=== PATIENT | male | born 1935 | race Caucasian/White ===

== ENCOUNTER 2016-12-06 07:53 | Day surgery (SDC) | payer MEDICARE ==
[~2016-12-06] VITALS: Ht 177.8 cm; Wt 80.1 kg
[~2016-12-06 07:53] MED LIST: APPLTAB2
[2016-12-06] MEDS ORDERED: ASPI81CH CHEW (08:33)
[2016-12-06] MEDS ORDERED: [UNRECOGNIZED DRUG - CODE] (08:33)
[2016-12-06] MEDS ORDERED: GEMF600T PO (08:33)
[2016-12-06] MEDS ORDERED: TEMA15CA PO (08:33)
[2016-12-06] MEDS ORDERED: REDCAP2 (08:33)
[2016-12-06] MEDS ORDERED: BETA0.1C TOPICAL (08:33)
[2016-12-06] MEDS ORDERED: VITA2000 PO (08:33)
[2016-12-06] MEDS ORDERED: ZINCCAP (08:33)
[2016-12-06] MEDS ORDERED: TURMCAP (08:33)
[2016-12-06] MEDS ORDERED: MAGN500T4 PO (08:33)
[2016-12-06] MEDS ORDERED: HYDR25TA5 PO (08:33)
[2016-12-06] MEDS ORDERED: LISI-515 PO (08:33)
[2016-12-06 08:57] VITALS: BP 143/89; PULSE 87; RESP 18; TEMP 98.1; O2SAT 93
[2016-12-06] MEDS ORDERED: IOHEXOL 350 MG/ML 100 ML BTL (for Cath Lab) OTHER ONE (09:30)
[2016-12-06] MEDS ORDERED: IOHEXOL 350 MG/ML 50 ML BTL (for Cath Lab) OTHER ONE (09:30)
[2016-12-06] MEDS ORDERED: MIDAZOLAM HCL 2 MG/2 ML VIAL ONE ×2 (09:45→10:10)
[2016-12-06] MEDS ORDERED: HEPARIN SODIUM - IV 10,000 UNITS/10 ML VIAL ONE (09:45)
[2016-12-06] MEDS ORDERED: HEPARIN-NS/PF INJ 500 ML ONE (09:48)
[2016-12-06] MEDS ORDERED: PLAV75TA29 PO (11:02)
[2016-12-06] MEDS ORDERED: CLOPIDOGREL 300 MG TAB ONE (11:05)
--- NOTE | 2016-12-06 11:06 | CATHPROC ---
Patient Name: NIKKY ZELAYA Study #: [id number] Initial MD: Willy Bonilla Date of : 1935 Study Date: 12/06/2016 Cardiac Catheterization Report 12/06/2016 11:06:10 AM Financial #: [id number] 1 of Patient Name: NIKKY ZELAYA Study #: [id number] Initial MD: Willy Bonilla Date of : 1935 Study Date: 12/06/2016 Entire Case Report Patient Information Patient Name NIKKY ZELAYA Date of 1935 Age 81 years Financial # [id number] Gender M AlternateID Lab Number 5 Accession # Room Number Height (in) 68.0 Height (cm) 172.7 BSA 1.94 Weight (lbs) 176.2 Weight (kg) 80.1 Patient Address/Phone Number Home Address [facility] Home Phone Number [phone] [facility] [place] [id number] Study Information Study Number Admission Scheduled Start Study Start 926-17 12/06/2016 12/06/2016 Dec 06 2016 9:36AM Referring Institution Admit Source Facility Department 1 Other [facility] Peeler Operator Physician and Clinical Staff Initial Willy Valenzuela Thermoscrew Operator Jim Kumar,LLOYD Thermoscrew Operator Svetlana Cantu RCIS TECH2 Recorder Carly BraggRT(R) (BS) Scrub Jayden TalaveraRT(R) Procedures Performed Procedure Location (Site) Vessel Name Abdominal Angiogram Abd Aorta (A3) Aorta Abdominal Angiogram Iliac R. Com. (R4) Illiac Art. Angiogram (manual) Iliac L. Com. (L4) [place]iac Art. SKIVER MACHINE OPERATOR Fem L. Com (L7) Femoral Art SKIVER MACHINE OPERATOR Popliteal R (R10) Popliteal Wire insertion Fem Art (left) Femoral Art 12/06/2016 11:06:10 AM Financial #: [id number] Patient Name: NIKKY ZELAYA Study #: [id number] Initial MD: Willy Bonilla Date of : 1935 Study Date: 12/06/2016 Equipment Time Complaint Manager Description Size Mfg Part Number Used/Scraped DBP- CARDIOVASCULAR CATHETER, STEALTH SOLID 10:30 [id number] Used SYSTEMS INC. 2.00MM 30 GRIT *[id number] CARDIOVASCULAR VPR-[id number] 10:29 WIRE, FIRM (VIPER) 335 Used SYSTEMS INC. *[id number] 09:41 CORDIS/ NORMA RIM SUPER TORQUE CATHETER FR 5 [id number] Used WIRE, STORQ STANDARD MOD J 10:43 CORDIS/ NORMA 300CM [id number] Used 300CM [id number] *[id number] BALLOON, ADMIRAL EXTREME 5 [id number] 10:39 [employer] 130CM Used X 40 130CM *[id number] BALLOON, ADMIRAL IN.PACT 6 X [id number] 10:40 [employer] 130CM Used 60 130CM *[id number] CATHETER, FR5 TRAILBLAZER [id number] 10:22 [employer] 135CM Used .035 *[id number] 09:41 MALLINCKRODT SYRINGE, ANGIOMAT 150ML 150ML [id number] Used [id number] 09:41 [employer] INDUSTRIES PACK, CCL CUSTOM * Used *[id number] 09:41 [employer] PACER PEN, SKIN DUAL W/ RULER * [id number] Used [id number] 10:45 Alegría MEDICAL SHEATH, FR6.5 PRELUDE 11CM FR 6.5 038ACT Used *[id number] 09:41 Alegría MEDICAL WIRE, EXCHANGE 260CM 3MMJ 260CM Used *[id number] 09:41 NAMIC MANIFOLD, 4 PORT * Used *[id number] 09:41 NAMIC TUBING, HIGH PRESSURE 48" 48" Used *[id number] 09:41 NYCOMED OMNIPAQUE, 300 MG, 100ML 100ML [id number] Used 09:41 NYCOMED OMNIPAQUE, 300 MG, 100ML 100ML [id number] Used [id number] 09:41 BARRIOS MEDICAL BLANKET,WARM AIR CCL * Used *[id number] 09:41 TERUMO MEDICAL SHEATH, FR5 TERUMO (10CM) FR 5 [id number] Used SHEATH, FR6 PINNACLE [id number] 10:24 TERUMO MEDICAL/NORMA FR 6 Used DESTINATION 45CM *[id number] WIRE, ANGLE GLIDE STIFF .035 09:41 TERUMO MEDICAL/NOMRA 260CM [id number] Used 260CM Equipment Model, Serial, Lot Number and Expiration Data Description Model Number Serial Number Lot Number Expiration Date BALLOON, ADMIRAL IN.PACT 6 X [id number] 08-13-2017 60 130CM CATHETER, FR5 TRAILBLAZER .035 [id number] 10-29-2019 CATHETER, STEALTH SOLID [id number] 08-27-2018 2.00MM 30 GRIT SHEATH, FR6.5 PRELUDE 11CM [id number] 08-27-2019 WIRE, FIRM (VIPER) 335 [id number] 07-27-2018 12/06/2016 11:06:10 AM Financial #: [id number] 3 of 11 Patient Name: NIKKY ZELAYA Study #: [id number] Initial MD: Willy Bonilla Date of : 1935 Study Date: 12/06/2016 Insurance Information Insurance Payor Private Health Insurance Third Libertarian Third Libertarian Number FHC - MCR HMO [id number] History: Allergies Allergy Reaction Lipitor prevastatin Sulfa Demerol Labs Hgb (g/dl) Hct (%) WBC (l/cumm) Platelets (thousands) 12.00-18.00 37.00-55.00 4.80-10.80 140.00-450.00 14.2 42.6 4.4 219 Glucose (mg/dl) BUN (mg/dl) Creatinine (mg/dl) BUN:Creatinine (1:x) 60.00-110.00 8.00-20.00 0.10-9.00 10.00-20.00 107 18 1.0 18 Na (meq/l) K (meq/l) 138.00-146.00 3.80-5.10 141 4.2 INR (PTT:PT) 0.50-2.00 1.1 CPK-MB (ng/ML) 0.00-7.00 Not Drawn Medication Medication Total Dose (Bolus/Oral) Medication Total Dosage/Unit 1% XYLOCAINE 20 mL FENTANYL 50 mcg HEPARIN 7000 units NTG (IC) 100 mcg VERSED 2 mg 12/06/2016 11:06:10 AM Financial #: [id number] 4 of 11 Patient Name: NIKKY ZELAYA Study #: [id number] Initial MD: Willy Bonilla Date of : 1935 Study Date: 017 Medications (Bolus/Oral) Medication Time Given Dosage/Unit Administered By Reason VERSED 12/06/2016 10:06:27 AM 2 mg Jim Kumar 2 mg VERSED given in lab by Jim Kumar RN in Left Antecubital via Peripheral IV. FENTANYL 12/06/2016 10:06:37 AM 50 mcg Jim Kumar 50 mcg FENTANYL given in lab by Jim Kumar RN in Left Antecubital via Peripheral IV. 1% XYLOCAINE 12/06/2016 10:08:52 AM 20 mL Willy Bonilla 20 mL 1% XYLOCAINE given in lab by Willy Bonilla in Left Groin via Subcutaneous. HEPARIN 12/06/2016 10:30:08 AM 5000 units Jim Kumar 5000 units HEPARIN given in lab by Jim Kumar RN in Left Antecubital via Peripheral IV. NTG (IC) 12/06/2016 10:36:34 AM 100 mcg Willy Bonilla 100 mcg NTG (IC) given in lab by Willy Bonilla in Left Groin via Intra-arterial. HEPARIN 12/06/2016 10:42:43 AM 2000 units Jim Kumar 2000 units HEPARIN given in lab by Jim Kumar RN in Left Antecubital via Peripheral IV. Medication (Drip) Medication Time Given Dosage/Unit Concentration/Unit Diluent (ml) Solutio n IV Solutions 12/06/2016 9:36:23 AM 0 mL (IV) 500 NaCl .9 IV Solutions given in lab by Jim Kumar RN in Left Antecubital via Peripheral IV. Pump/Drip Flow = 20 ml/hr using NaCl .9. 12/06/2016 11:06:10 AM Financial #: [id number] Patient Name: NIKKY ZELAYA Study #: [id number] Initial MD: Willy Bonilla Date of : 1935 Study Date: 12/06/2016 Initial Case Assessment Cardiovascular HR NIBP Chest Pain 75 148/94 0 Edema Present Skin color Skin None Normal Warm Dry Circulatory - Right Pulses Dorsalis Pedis Posterior Tibial Femoral 2 d 2 Scale (0,1,2,3,4,d) Circulatory - Left Pulses Dorsalis Pedis Posterior Tibial Femoral d d 2 Scale (0,1,2,3,4,d) Circulatory - Lower Extremities Color Lower Right Color Lower Left Normal Normal Neurological State Oriented to time-place- Alert Moves all extremities person Respiration - General Respiration Rate SpO2 (%) (B/min) 15 98 12/06/2016 11:06:10 AM Financial #: [id number] 6 of 11 Patient Name: NIKKY ZELAYA Study #: [id number] Initial MD: Willy Bonilla Date of : 1935 Study Date: 12/06/2016 Vitals Summary Pain Time HR NIBP SpO2 Resp Temp EtCO2 Apnea Wolfgang Rouse Comment Level 09:39:53 80 148/94 96.0 8 10 0 2 09:44:41 79 143/70 97.0 14 10 0 2 09:48:53 80 133/83 97.0 19 10 0 2 09:53:54 78 134/71 96.0 19 10 0 2 09:58:51 78 129/74 97.0 16 10 0 2 10:03:50 80 117/72 95.0 18 10 0 2 10:08:49 86 112/74 94.0 17 10 0 2 10:14:23 88 110/51 92.0 12 10 0 2 10:18:45 82 82/71 96.0 13 10 0 2 10:24:19 82 118/80 96.0 15 10 0 2 10:29:39 81 115/75 96.0 15 10 0 2 10:33:51 83 116/68 95.0 11 2 10:38:58 83 130/51 96.0 13 10 0 2 10:43:55 79 116/70 96.0 12 10 0 2 10:48:52 79 110/68 97.0 13 10 0 2 10:54:28 80 122/74 98.0 14 10 0 2 10:58:52 79 135/83 97.0 22 10 0 2 12/06/2016 11:06:10 AM Financial #: [id number] 7 11 Patient Name: NIKKY ZELAYA Study #: [id number] Initial MD: Willy Bonilla Date of : 1935 Study Date: 12/06/2016 Wolfgang Score Summary Time Activity Resp Circ LOC Color Total Score 9:39:53 2 2 2 2 2 10 9:44:41 2 2 2 2 2 10 9:48:53 2 2 2 2 2 10 9:53:54 2 2 2 2 2 10 9:58:51 2 2 2 2 2 10 10:03:50 2 2 2 2 2 10 10:08:49 2 2 2 2 2 10 10:14:23 2 2 2 2 2 10 10:18:45 2 2 2 2 2 10 10:24:19 2 2 2 2 2 10 10:29:39 2 2 2 2 2 10 10:38:58 2 2 2 2 2 10 10:43:55 2 2 2 2 2 10 10:48:52 2 2 2 2 2 10 10:54:28 2 2 2 2 2 10 10:58:52 2 2 2 2 2 10 Wolfgang Score Definition Table Activity - 0 Activity - 1 Activity - 2 No Movement to Command Weak Hand Grasp Lift Head, Good Hand Grasp Respiration - 0 Respiration - 1 Respiration - 2 Apneic or Obstructed Shallow Breath, Airway Adjunct Deep Breath, Cough Freely Circulation - 0 Circulation - 1 Circulation - 2 B/P > 50% Admission B/P B/P > 20-50% Admission B/P B/P Stable X3 Level of Consciousness - 0 Level of Consciousness - 1 Level of Consciousness - 2 Not Responding Arousable On Calling Awake and Aware Color - 0 Color- 1 Color - 2 Cyanotic Lips, Nailbed, Skin Pale, Dusky Rosamond Or Normal Chronological Log Time Study Chronological Log 9:33:55 Patient arrived via Bed. 9:33:59 Patient Name, D.O.B, / Armband Verified By R.N. 9:34:01 Consent signed by the physician and the patient and verified by the Peeler Operator staff. 9:34:05 Pre-op and post- op instructions given; patient acknowledges understanding of instructions . 9:34:07 Verbal Stimulation=2 Physical Stimulation=2 Airway=2 Respiration=2 TOTAL=8. (0=absent, 1=l imited, 2=present) 12/06/2016 11:06:10 AM Financial #: [id number] Patient Name: NIKKY ZELAYA Study #: [id number] Initial MD: Willy Bonilla Date of : 1935 Study Date: 12/06/2016 9:36:12 Presedation assessment performed by Peeler Operator RN. 9:36:16 Patient has been NPO for More than 6Hrs. 9:36:19 Skin Breakdown none per pt 9:36:20 Patient Warmer Placed on the Table. 9:36:22 Kandi Prominences Protected 9:36:22 A # 20 IV was noted in the Antecubital (left). Grade = 0 IV Solutions given in lab by Jim Kumar RN in Left Antecubital via Peripheral IV. Pump/Drip Flow = 20 ml/hr using 9:36:23 NaCl .9. 9:36:24 History and physical on the chart or being dictated. Assessment: Initial Case, HR=75 BPM, FQSA=010/94 mmhg, Chest Pain=0, Edema=None, Color=Normal, Skin = Warm, Dry Right Pulses: Sheldon Ped=2, Post Tib=d, Femoral=2 Left Pulses: Sheldon Ped=d, Post Tib=d, Femoral=2 9:36:25 Lower Right Extremities: Color=Normal Lower Left Extremities: Color=Normal Neurological: State=Alert, Ox3, SAHU Respiration: Resp=15 B/min, SpO2=98 % Vitals capture started with the following parameters, Patient=Adult, Interval=5 min, Initial Pr ajlqdc=848 mmHg, 9:38:12 Deflation Rate=5 mmHg 9:39:53 HR=80 bpm, LPDE=704/94 mmhg, SpO2=96.0 %, Resp=8 B/min, Pain=0, Wolfgang=10, Rouse=2 9:44:41 HR=79 bpm, BDWM=199/70 mmhg, SpO2=97.0 %, Resp=14 B/min, Pain=0, Wolfgang=10, Rouse=2 9:48:53 HR=80 bpm, IIPP=819/83 mmhg, SpO2=97.0 %, Resp=19 B/min, Pain=0, Wolfgang=10, Rouse=2 9:51:21 Bilateral groins prepped with 2% chlorhexidine, and with a 3 min. waiting time. 9:53:54 HR=78 bpm, UDSS=476/71 mmhg, SpO2=96.0 %, Resp=19 B/min, Pain=0, Wolfgang=10, Rouse=2 9:56:26 paged 9:58:14 MD responded 9:58:51 HR=78 bpm, RGXP=828/74 mmhg, SpO2=97.0 %, Resp=16 B/min, Pain=0, Wolfgang=10, Rouse=2 9:59:32 Pressure channel 1 zeroed. 10:03:28 MD arrived. 10:03:50 HR=80 bpm, SUDG=370/72 mmhg, SpO2=95.0 %, Resp=18 B/min, Pain=0, Wolfgang=10, Rouse=2 10:06:27 2 mg VERSED given in lab by Jim Kumar, RN in Left Antecubital via Peripheral IV. 10:06:37 50 mcg FENTANYL given in lab by Jim Kumar RN in Left Antecubital via Peripheral IV. Time Out. Correct patient, correct procedure,correct physician, power injector loaded with cont rast with surgical team 10:08:18 present. Time Out Concurred by , individual staff in procedure 10:08:41 Case Start 10:08:49 HR=86 bpm, JXHD=198/74 mmhg, SpO2=94.0 %, Resp=17 B/min, Pain=0, Wolfgang=10, Rouse=2 10:08:52 20 mL 1% XYLOCAINE given in lab by Willy Bonilla in Left Groin via Subcutaneous. 10:10:55 Access site was Left Femoral Artery. 10:11:09 A SHEATH, FR5 TERUMO (10CM) FR 5 was advanced into the Fem Art (left) using the Percutaneou s technique. A PIGTAIL ANG. INFINITI CATHETER FR 5 was advanced over a wire. OMNIPAQUE, 300 MG, 100ML 100ML was used 10:14:02 for injections. 10:14:23 HR=88 bpm, CSMU=511/51 mmhg, SpO2=92.0 %, Resp=12 B/min, Pain=0, Wolfgang=10, Rouse=2 10:17:08 Through a PIGTAIL ANG. INFINITI CATHETER FR 5, The Abdominal Aorta was injected with 12 cc' s of contrast. 12/06/2016 11:06:10 AM Financial #: [id number] Patient Name: NIKKY ZELAYA Study #: [id number] Initial MD: Willy Bonilla Date of : 1935 Study Date: 12/06/2016 10:18:45 HR=82 bpm, NIBP=82/71 mmhg, SpO2=96.0 %, Resp=13 B/min, Pain=0, Wolfgang=10, Rouse=2 After removing the current catheter a RIM SUPER TORQUE CATHETER FR 5 was advanced over a WIRE, EXCHANGE 10:19:06 260CM 3MMJ 260CM. 10:20:09 Through a RIM SUPER TORQUE CATHETER FR 5, was injected with contrast and continued down the right leg 10:24:19 HR=82 bpm, ACHM=917/80 mmhg, SpO2=96.0 %, Resp=15 B/min, Pain=0, Wolfgang=10, Rouse=2 A SHEATH, FR6 PINNACLE DESTINATION 45CM FR 6 was exchanged in the Fem Art (left). This was nece ssary in order 10:24:50 to accomodate a larger catheter. A CATHETER, FR5 TRAILBLAZER .035 135CM was advanced over a wire. OMNIPAQUE, 300 MG, 100ML 100ML was 10:26:51 used for injections. 10:29:14 Catheter was removed 10:29:39 HR=81 bpm, KCLG=695/75 mmhg, SpO2=96.0 %, Resp=15 B/min, Pain=0, Wolfgang=10, Rouse=2 10:30:08 5000 units HEPARIN given in lab by Jim Kumar, RN in Left Antecubital via Peripheral IV. 10:32:56 An CATHETER, STEALTH SOLID 2.00MM 30 GRIT catheter was inserted into the Fem Art (left). 10:33:51 HR=83 bpm, XORJ=262/68 mmhg, SpO2=95.0 %, Resp=11 B/min, Rouse=2 10:36:34 100 mcg NTG (IC) given in lab by Willy Bonilla in Left Groin via Intra-arterial. 10:37:18 Catheter was removed 10:38:58 HR=83 bpm, OFFG=236/51 mmhg, SpO2=96.0 %, Resp=13 B/min, Pain=0, Wolfgang=10, Rouse=2 A BALLOON, ADMIRAL EXTREME 5 X 40 130CM 130CM was inserted over WIRE, FIRM (VIPER) 335 via the Fem Art 10:41:03 (left). 10:41:24 In the Popliteal R (R10) a BALLOON, ADMIRAL EXTREME 5 X 40 130CM 130CM was inflated to 6 at ms for 60 seconds. 10:42:27 ACT (Normal Range 90-180) = 205 10:42:43 2000 units HEPARIN given in lab by Jim Kumar, RN in Left Antecubital via Peripheral IV. A CATHETER, FR5 TRAILBLAZER .035 135CM was advanced over a wire. OMNIPAQUE, 300 MG, 100ML 100ML was 10:43:49 used for injections. 10:43:55 HR=79 bpm, MWAB=576/70 mmhg, SpO2=96.0 %, Resp=12 B/min, Pain=0, Wolfgang=10, Rouse=2 10:44:07 Wire removed 10:44:11 A WIRE, STORQ STANDARD MOD J 300CM 300CM was inserted via Fem Art (left). A BALLOON, ADMIRAL IN.PACT 6 X 60 130CM 130CM was inserted over WIRE, STORQ STANDARD MOD J 300C M 10:44:24 300CM via the Fem Art (left). 10:44:50 In the Popliteal R (R10) a BALLOON, ADMIRAL IN.PACT 6 X 60 130CM 130CM was inflated to 6 at ms for 180 seconds. 10:48:19 In the Fem L. Com (L7) a BALLOON, ADMIRAL IN.PACT 6 X 60 130CM 130CM was inflated to 6 atms for 120 seconds. 10:48:52 HR=79 bpm, KQEF=661/68 mmhg, SpO2=97.0 %, Resp=13 B/min, Pain=0, Wolfgang=10, Rouse=2 10:52:12 Balloon Removed A SHEATH, FR6.5 PRELUDE 11CM FR 6.5 was exchanged in the Fem Art (left). This was necessary in order to achieve 10:54:22 vascular hemostasis. 10:54:28 HR=80 bpm, BRUU=874/74 mmhg, SpO2=98.0 %, Resp=14 B/min, Pain=0, Wolfgang=10, Rouse=2 10:56:41 Iliac L. Com. (L4) and the rest of the leg angiogram, manually injected. 10:57:17 Catheter was removed w/o difficulty 10:57:49 Case End 10:57:59 Activated Clotting Time Drawn 10:58:15 Catheter(s) removed without difficulty 10:58:19 In the Fem Art (left) the SHEATH, FR6.5 PRELUDE 11CM FR 6.[address] by Willy Bonilla. 12/06/2016 11:06:10 AM Financial #: [id number] Patient Name: NIKKY ZELAYA Study #: [id number] Initial MD: Willy Bonilla Date of : 1935 Study Date: 12/06/2016 10:58:29 No case complications noted. 10:58:31 Cine recording checked. 10:58:38 Holding Area notified of successful intervention. 10:58:40 Bedside Report will be given. 10:58:52 HR=79 bpm, NHSE=803/83 mmhg, SpO2=97.0 %, Resp=22 B/min, Pain=0, Wolfgang=10, Rouse=2 11:01:35 DOCU called. Spoke to Rudy. Adivsed a-line needed. 11:03:17 Sterile dressing applied to site 11:03:47 ACT (Normal Range 90-180) = 241 11:03:54 Vitals capture stopped. 11:08:53 [facility] Study - Contrast Media Used In Study Contrast Total Opened (mL) Total Used (mL) Total Wasted (mL) Omnipaque 125 125 0 End Study - Maximum Contrast Load Max Contrast Load (mL) 400.5 End Study - Radiation Exposure Fluoro Time (minutes) 10.3 End Study - Patient Disposition Complications Transferred To Interventional Outcome No Peeler Operator Holding successful 12/06/2016 11:06:10 AM Financial #: [id number]
[2016-12-06] MEDS ORDERED: PRASUGREL 10 MG TAB ONE (11:13)
[2016-12-06] MEDS ORDERED: CLOPIDOGREL 300 MG TAB PO ONE (11:15)
[2016-12-06] MEDS ORDERED: METOCLOPRAMIDE HCL 10 MG/2 ML VIAL IV PRN (11:15)
[2016-12-06] MEDS ORDERED: oxyCODONE/ACETAMINOPHEN 5 MG/325 MG TAB PO PRN (11:15)
[2016-12-06] MEDS ORDERED: TEMAZEPAM 15 MG CAP PO PRN (11:15)
[2016-12-06] MEDS ORDERED: MORPHINE SULFATE 4 MG/ML INJ IV PUSH PRN (11:15)
[2016-12-06] MEDS ORDERED: ATROPINE SULFATE 1 MG/ML VIAL IV PRN (11:15)
[2016-12-06] MEDS ORDERED: ONDANSETRON HCL 4 MG/2 ML VIAL IV PRN (11:15)
[2016-12-06] MEDS ORDERED: oxyCODONE/ACETAMINOPHEN 10 MG/325 MG TAB PO PRN (11:15)
[2016-12-06] MEDS ORDERED: SODIUM CHLOR 0.9% 250 ML INJ 250 ML IV PRN (11:15)
[2016-12-06] MEDS ORDERED: PRAS10TA PO (11:36)
--- NOTE | 2016-12-06 11:48 | MA ---
cc: CATHYSILVIA DATE: 12/06/2016 PROCEDURE PERFORMED 1. Descending aortography. 2. Bilateral lower extremity peripheral angiography with first, second, third order visualization and interpretation. 3. Orbital rotational atherectomy and balloon angioplasty with drug-coated balloon of the right superficial and popliteal arteries. METHOD The risks, benefits and alternatives were discussed with the patient. The patient understood and consented to the procedure. The patient was brought into the catheterization lab and placed on the catheterization table. The left groin was prepped and draped in a sterile fashion. The left groin was anesthetized with 2% lidocaine. The left common femoral artery is cannulated and a 5-Lithuanian, 11 cm sheath was placed without difficulty. DESCENDING AORTOGRAPHY Descending aortography was performed in anterior and posterior views using a 24 cc contrast injection with good opacification. The bilateral renal arteries were widely patent. The infrarenal aorta had mild luminal irregularities. PERIPHERAL ANGIOGRAPHY 1. The left common iliac artery has 30% calcific stenosis. No translesional gradient is present. The left external iliac artery has a stent present. The left internal iliac is occluded. There is a stent in the left external iliac artery that extends down into the very proximal common femoral artery. The common femoral artery has minor luminal irregularities. The left profunda has minor luminal irregularities. The proximal superficial femoral artery has a 50% eccentric stenosis. The midsegment has 30% stenosis. The left popliteal has minor luminal irregularities. There is one-vessel runoff below the knee. The left lower extremity peroneal artery is patent with minor luminal irregularities. The posterior tibial and anterior tibial vessels are occluded. They are collateralized distally via the peroneal vessel. 2. The right common iliac artery has a stent present. 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 The stent is widely patent. The right internal iliac artery has 50% proximal stenosis. The right external iliac artery is patent, has a stent present in the distal segment which is patent. The right common femoral artery and profunda artery have minor luminal irregularities. The right superficial femoral artery in the proximal segment has a 75% calcific stenosis. The stent present in the midsegments is widely patent. The superficial femoral artery distally has minor luminal irregularities. The popliteal artery has an 80% tubular stenosis. The right anterior tibial and posterior tibial are occluded. The peroneal vessel is patent and collateralizes the distal vessel at the level of the ankle. PERCUTANEOUS INTERVENTION A 6-Lithuanian, 45 cm [facility] sheath was advanced up-and-over the arch into the right superficial femoral artery. A 0.035 inch, 260 cm Stiff angle Glidewire was navigated down into the distal peroneal vessel. A Trailblazer catheter was advanced behind it. The Glidewire removed. A 0.014 inch, 35 cm Viper wire was navigated down the distal peroneal vessel. The Trailblazer catheter was removed. A 2.0 mm CSI atherectomy catheter was then prepped and advanced down to the popliteal artery. Orbital rotational atherectomy is performed in the mid popliteal artery on four sequential passes. A 5.0 x 40 mm Medtronic balloon is then deployed in the popliteal artery followed by a 6.0 x 60 mm Medtronic drug-coated balloon for prolonged inflation. Repeat angiography showed no residual stenosis. The balloon is pulled back and dilated in the proximal superficial femoral artery for prolonged inflation. Repeat angiography showed no residual stenosis, PURVI-III flow. The sheath was removed. A 6-Lithuanian, 11 cm sheath was sewn into place to be removed with manual hemostasis. CONCLUSIONS 1. 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 2. Severe bilateral infrapopliteal disease. 3. Moderate left superficial femoral and left common iliac artery stenosis. 4. Successful orbital rotational atherectomy and balloon angioplasty with drug-coated balloons of the right superficial and popliteal arteries. PLAN The patient will be monitored closely for any post-procedural complications. Hopefully this will translate well with symptomatic improvement. Though his CALLUM is reduced on the left there appears to be no high-grade stenosis present for intervention, so will have to continue with medical management. Will initiate Plavix here today. Anticipate discharge later today. MD KONG Laen/BRENDA /11:07 AM /11:27 AM
[2016-12-06] MEDS ORDERED: PRASUGREL 10 MG TAB PO ONE (12:15)
[2016-12-07] MEDS ORDERED: PRASUGREL 10 MG TAB PO SCH (09:00)
[2016-12-07] MEDS ORDERED: ASPIRIN 81 MG CHEW TAB PO SCH (09:00)
[2016-12-07] MEDS ORDERED: CLOPIDOGREL 75 MG TAB PO SCH (09:00)
== END 2016-12-06 20:14 | disposition home or self-care (01) ==
LOC: HDOC 07:53 → HDIC 07:54 → HDOC 20:14
PROVIDERS: ATTEND Internal Medicine
DX: I70.211 Atherosclerosis of native arteries of extremities with intermittent claudication, right leg (principal); I70.0 Atherosclerosis of aorta; I77.9 Disorder of arteries and arterioles, unspecified; I12.9 Hypertensive chronic kidney disease with stage 1 through stage 4 chronic kidney disease, or unspecified chronic kidney disease; E11.21 Type 2 diabetes mellitus with diabetic nephropathy; N18.2 Chronic kidney disease, stage 2 (mild); E11.51 Type 2 diabetes mellitus with diabetic peripheral angiopathy without gangrene; Z87.891 Personal history of nicotine dependence; Z79.82 Long term (current) use of aspirin
CPT/HCPCS: 37225; 75625; 75716; 85002; 85347; 86850; 86900; 86901; C1714; C1725; C1751; C1769; C1893; C2623; J1644; J2250; J3010; 37224; Q9967

== ENCOUNTER → 2017-03-06 | Day surgery (SDC) | payer MEDICARE ==
[~2017-03-06] VITALS: Ht 177.8 cm; Wt 78.0 kg
[~2017-03-06] MED LIST changes: +ASPI81CH CHEW; +BETA0.1C TOPICAL; +CHLORHEXIDINE GLUCONATE 2 % 1 PACK (2 CLOTHS) TOPICAL PRN; +CYCLOPENTOLATE HCL 1% OPHT SOLN 2 ML BTL ONE; +FLURBIPROFEN 0.03% OPHT SOLN 2.5 ML BTL ONE; +GEMF600T PO; +HYDR25TA5 PO; +INSULIN HUMAN REGULAR 1,000 UNITS/10 ML VIAL SQ PRN; +LACTATED RINGER'S 1000 ML IV PRN; +LIDOCAINE HCL 1% PF 30 ML VIAL ONE; +LIDOCAINE HCL 2% JELLY 5 ML SYRINGE ONE; +LISI-515 PO; +MAGN500T5 PO; +METOPROLOL TARTRATE 25 MG TAB PO PRN; +PHENYLEPHRINE HCL 10% OPTH SOLN 5 ML BTL ONE; +PLAV75TA29 PO; +POVIDONE IODINE 5% (ANTISEPSIS KIT) 4 APPLICATIONS EACH NARE PRN; +PRAS10TA PO; +PROPARACAINE HCL 0.5% OPHT SOLN 15 ML BTL ONE; +REDCAP2; +SODIUM CHLORID 0.9% 500 ML IV PRN; +TEMA15CA PO; +TOBRAMYCIN/DEXAMETHASONE OPTH OINT 3.5 GM TUBE ONE; +TROPICAMIDE 1% OPHT SOLN 15 ML BTL ONE; +TUMERIC PO; +TURM500C3 PO; +VITA2000 PO; +ZINC SULFATE PO; +ZINC220C3 PO; +[UNRECOGNIZED DRUG - CODE]
[2017-03-06 06:29] VITALS: BP 152/92; PULSE 80; RESP 16; TEMP 97.7; O2SAT 95
[2017-03-06 08:35] VITALS: BP 126/62; PULSE 72; RESP 16; TEMP 98; O2SAT 96
--- NOTE | 2017-03-07 13:02 | MP ---
cc: HOSSEIN COOPER M.D. DATE OF SURGERY: 03/06/2016. [facility] NUMBER: [id number] PREOPERATIVE DIAGNOSIS: Visually significant cataract right eye. POSTOPERATIVE DIAGNOSIS: Visually significant cataract right eye. OPERATION: Phacoemulsification with posterior chamber lens implantation, right eye. SURGEON: Hossein Cooper MD ANESTHESIA: Topical with MAC. COMPLICATIONS: None. DESCRIPTION OF THE PROCEDURE IN DETAIL: After informed consent was obtained, the patient was brought into the operative suite and placed on appropriate monitors by the anesthesia service. The patient had been given dilating drops and topical lidocaine gel in the holding area. The patient's operative eye was then prepped and draped in the usual sterile fashion. A wire lid speculum was placed. Further 2% lidocaine was then dropped on the cornea prior to beginning the procedure. A paracentesis incision was made in the peripheral cornea with a 1 mm jayme keratome. The anterior chamber was filled with viscoelastic. The anterior chamber was then entered through a stepped, clear corneal incision using a sharp 3 mm jayme keratome. A circular tear capsulorrhexis was then made with a bent needle cystitome. Following hydrodissection of the lens nucleus with balance saline, phacoemulsification of the nucleus was performed using a modified chopping technique. The remaining cortex was removed with irrigation/aspiration. The prior two procedures were both performed using the handpieces of the [employer]ch [employer] phaco unit. The capsular bag was then filled with viscoelastic. The intraocular lens was then injected into the capsular bag and positioned. The type of intraocular lens and its power can be found elsewhere in this chart. The remaining viscoelastic was then removed from the anterior chamber with the IA handpiece. The anterior chamber was reformed with balanced saline. The wound was then closed securely with stromal hydration. It was found to be watertight to an intraocular pressure of at least 30 mmHg by palpation. A small amount of balanced salt solution was then removed through the paracentesis site and the intraocular pressure at the end of the case was approximately 20 by palpation. All drapes were then removed. TobraDex ointment was then placed in the eye, which was closed beneath a semi-pressure patch dressing. The patient tolerated this procedure well and left the operating room awake and alert. The patient is to follow-up in my office in the morning. Hossein MD JJ Zuniga/MYA /10:03 AM /12:55 PM
== END | disposition home or self-care (01) ==
LOC: PHSDC 06:12
PROVIDERS: ATTEND Optometrist Occupational Vision
DX: H25.811 Combined forms of age-related cataract, right eye (principal); H04.123 Dry eye syndrome of bilateral lacrimal glands; E11.9 Type 2 diabetes mellitus without complications; I77.819 Aortic ectasia, unspecified site; I70.0 Atherosclerosis of aorta; I12.9 Hypertensive chronic kidney disease with stage 1 through stage 4 chronic kidney disease, or unspecified chronic kidney disease; N18.9 Chronic kidney disease, unspecified; I65.29 Occlusion and stenosis of unspecified carotid artery; E83.52 Hypercalcemia; G47.00 Insomnia, unspecified; M19.90 Unspecified osteoarthritis, unspecified site; I73.9 Peripheral vascular disease, unspecified; Z87.891 Personal history of nicotine dependence; Z87.442 Personal history of urinary calculi; Z86.010 Personal history of colon polyps; Z79.01 Long term (current) use of anticoagulants; Z79.82 Long term (current) use of aspirin; Z79.899 Other long term (current) drug therapy
CPT/HCPCS: 00142; 66984; J7040; V2632

== ENCOUNTER → 2017-04-17 | Day surgery (SDC) | payer MEDICARE ==
[~2017-04-17] VITALS: Ht 177.8 cm; Wt 78.0 kg
[~2017-04-17] MED LIST changes: +ACETAMINOPHEN 325 MG TAB PO PRN; +IODI150T PO; +LIDOCAINE HCL 2% JELLY 5 ML SYRINGE TOPICAL ONE; -PRAS10TA PO; +PROPARACAINE HCL 0.5% OPHT SOLN 15 ML BTL LEFT EYE ONE; +SODIUM CHLORID 0.9% 500 ML INJ 500 ML ONE; -SODIUM CHLORID 0.9% 500 ML IV PRN; -TUMERIC PO; -ZINC SULFATE PO
[2017-04-17] MEDS: FLURBIPROFEN 0.03% OPHT SOLN 2.5 ML BTL LEFT EYE SCH ×4 (06:35→06:50)
[2017-04-17] MEDS: TROPICAMIDE 1% OPHT SOLN 15 ML BTL LEFT EYE SCH ×4 (06:35→06:50)
[2017-04-17] MEDS: CYCLOPENTOLATE HCL 1% OPHT SOLN 2 ML BTL LEFT EYE SCH ×4 (06:35→06:50)
[2017-04-17] MEDS: PHENYLEPHRINE HCL 10% OPTH SOLN 5 ML BTL LEFT EYE SCH ×4 (06:35→06:50)
[2017-04-17 08:18] VITALS: TEMP 97.8
[2017-04-17 08:35] VITALS: BP 125/68; PULSE 65; RESP 14; O2SAT 95
--- NOTE | 2017-04-17 12:29 | MP ---
cc: HOSSEIN COOPER M.D. [facility] NUMBER: [id number] DATE OF SURGERY: 04/17/2017 PREOPERATIVE DIAGNOSIS: Visually significant cataract left eye. POSTOPERATIVE DIAGNOSIS: Visually significant cataract left eye. OPERATION: Phacoemulsification with posterior chamber lens implantation, left eye. SURGEON: Hossein Cooper MD ANESTHESIA: Topical with MAC. COMPLICATIONS: None. PROCEDURE: After informed consent was obtained, the patient was brought into the operative suite and placed on appropriate monitors by the Anesthesia Service. The patient had been given dilating drops and topical lidocaine gel in the holding area. The patient's operative eye was then prepped and draped in the usual sterile fashion. A wire lid speculum was placed. Further 2% lidocaine was then dropped on the cornea prior to beginning the procedure. A paracentesis incision was made in the peripheral cornea with a 1 mm jayme keratome. The anterior chamber was filled with viscoelastic. The anterior chamber was then entered through a stepped, clear corneal incision using a sharp 3 mm jayme keratome. A circular tear capsulorrhexis was then made with a bent needle cystitome. Following hydrodissection of the lens nucleus with balance saline, phaco-emulsification of the nucleus was performed using a modified chopping technique. The remaining cortex was removed with irrigation/aspiration. The prior two procedures were both performed using the handpieces of the [employer] phaco unit. The capsular bag was then filled with viscoelastic. The intraocular lens was then injected into the capsular bag and positioned. The type of intraocular lens and its power can be found elsewhere in this chart. The remaining viscoelastic was then removed from the anterior chamber with the IA handpiece. The anterior chamber was reformed with balanced saline. The wound was then closed securely with stromal hydration. It was found to be watertight to an intraocular pressure of at least 30 mmHg by palpation. A small amount of balanced salt solution was then removed through the paracentesis site and the intraocular pressure at the end of the case was approximately 20 by palpation. All drapes were then removed. TobraDex ointment was then placed in the eye, which was closed beneath a semi-pressure patch dressing. The patient tolerated this procedure well and left the operating room awake and alert. The patient is to follow-up in my office in the morning. ADDENDUM: After the clear corneal incisions were sealed watertight, an 8 mm limbal relaxing incision was made with a 600 micron jayme blade, centered around the inferior 90 degree meridian. MD Chelsie Reyes /9:08 AM /12:19 PM
== END | disposition home or self-care (01) ==
LOC: PHSDC 06:07
PROVIDERS: ATTEND Optometrist Occupational Vision
DX: H25.812 Combined forms of age-related cataract, left eye (principal)
CPT/HCPCS: 00142; 66984; J7040; V2632

== ENCOUNTER 2017-10-15 15:56 | Emergency (ER) | payer MEDICARE ==
[~2017-10-15] VITALS: Ht 177.8 cm; Wt 85.0 kg
[~2017-10-15 15:56] MED LIST changes: -ACETAMINOPHEN 325 MG TAB PO PRN; +ASPI-516 CHEW; -ASPI81CH CHEW; -CHLORHEXIDINE GLUCONATE 2 % 1 PACK (2 CLOTHS) TOPICAL PRN; -CYCLOPENTOLATE HCL 1% OPHT SOLN 2 ML BTL ONE; -FLURBIPROFEN 0.03% OPHT SOLN 2.5 ML BTL ONE; -INSULIN HUMAN REGULAR 1,000 UNITS/10 ML VIAL SQ PRN; -LACTATED RINGER'S 1000 ML IV PRN; -LIDOCAINE HCL 1% PF 30 ML VIAL ONE; -LIDOCAINE HCL 2% JELLY 5 ML SYRINGE ONE; -LIDOCAINE HCL 2% JELLY 5 ML SYRINGE TOPICAL ONE; -METOPROLOL TARTRATE 25 MG TAB PO PRN; -PHENYLEPHRINE HCL 10% OPTH SOLN 5 ML BTL ONE; -POVIDONE IODINE 5% (ANTISEPSIS KIT) 4 APPLICATIONS EACH NARE PRN; -PROPARACAINE HCL 0.5% OPHT SOLN 15 ML BTL LEFT EYE ONE; -PROPARACAINE HCL 0.5% OPHT SOLN 15 ML BTL ONE; -SODIUM CHLORID 0.9% 500 ML INJ 500 ML ONE; -TOBRAMYCIN/DEXAMETHASONE OPTH OINT 3.5 GM TUBE ONE; -TROPICAMIDE 1% OPHT SOLN 15 ML BTL ONE
[2017-10-15 16:59] VITALS: BP 148/72; PULSE 110; RESP 18; TEMP 97.8; O2SAT 95
[2017-10-15] MEDS ORDERED: LIDOCAINE HCL 1% 50 ML VIAL INFIL ONE (17:45)
[2017-10-15] MEDS ORDERED: TETANUS/DIPHTHERIA TOXOID ADULT 0.5 ML VIAL IM ONE (17:45)
[2017-10-15] MEDS ORDERED: LIDOCAINE HCL 1% 20 ML VIAL ONE (18:02)
--- NOTE | 2017-10-15 18:43 | RADRPT ---
EXAM DATE/TIME: 10/15/2017 18:03 [place] COMPARISON: No previous studies available for comparison. INDICATIONS : Left hand pain post fall today. Laceration to palm of hand. MEDICAL HISTORY : None. SURGICAL HISTORY : None. ENCOUNTER: Initial ACUITY: 1 day PAIN SCORE: 8/10 LOCATION: Left palmar surface of hand FINDINGS: Two view examination of the left hand demonstrates no soft tissue swelling, dislocation, or fracture. The joint spaces are maintained. Bony mineralization is normal. CONCLUSION: 1. No acute bony abnormality. No radiopaque foreign body. Braulio Weinstein MD on October 15, 2017 at 18:40 Board Certified Radiologist. This report was verified electronically.
[2017-10-15] MEDS ORDERED: CEPH-460 PO (19:25)
--- NOTE | 2017-10-15 19:26 | PD ---
HPI Chief Complaint: Laceration/Skin Injury Time Seen by Provider: 17:20 Travel History International Travel<30 days: No Contact w/Intl Traveler<30days: No Traveled to known affect area: No History of Present Illness HPI 72-year-old male here with a laceration to the left palm after he fell from a standing position after tripping prior to arrival. No head injury loss of consciousness. He is anticoagulated on Plavix. He reports aching pain within the left hand. He has normal sensation and full range of motion of the wrist and hand. He has bleeding from the laceration. He denies any other injury. Symptom severity is moderate. No aggravating or alleviating factors. He denies headache, visual changes, neck pain, chest pain, shortness breath, abdominal pain, paresthesia or weakness of extremities. PFSH Past Medical History Cancer: No Cardiovascular Problems: Yes (AORTIC ECTASIA AND ATHEROSCLEROSIS) Diabetes: Yes (TYPE 2 DIABETIC) Patient Takes Glucophage: No Diminished Hearing: No Endocrine: No Gastrointestinal Disorders: Yes (DIVERTICULOSIS) Genitourinary: No Hepatitis: No Hiatal Hernia: No Hypertension: Yes (BENIGN ESSENTIAL HTN) Immune Disorder: No Medical other: Yes (ECZEMA) Musculoskeletal: Yes (OSTEOARTHRITIS, HX OF HERNIATED LUMBAR DISC) Neurologic: No Psychiatric: No Reproductive: No Respiratory: Yes (SOB OF PLAVIX) Thyroid Disease: No Tetanus Vaccination: Unknown Influenza Vaccination: Yes ?: Not Past Surgical History Abdominal Surgery: No AICD: No Body Medical Devices: STENT BOTH LEGS Cardiac Surgery: Yes (PERCUTANEOUS TRANSLUMINAL CORONARY ANGIOPLASTY) Ear Surgery: No Endocrine Surgery: No Eye Surgery: Yes (PHACO RIGHT CATARACT) Genitourinary Surgery: Yes (ELECTIVE CIRCUMCISION) Gynecologic Surgery: No Joint Replacement: No Oral Surgery: No Pacemaker: No Thoracic Surgery: No Other Surgery: Yes Social History Alcohol Use: Yes (wine daily) Tobacco Use: No Substance Use: Yes (HX OF MARIJUANA) Allergies-Medications (Allergen,Severity, Reaction): Coded Allergies: Sulfa (Sulfonamide Antibiotics) (Unverified Allergy, Intermediate, Swelling, 10/15/17) meperidine (Unverified Allergy, Intermediate, Nausea/Vomiting, 10/15/17) pravastatin (Unverified Allergy, Unknown, PATIENT UNSURE, 10/15/17) atorvastatin (Unverified Adverse Reaction, Severe, MUSCLE ACHES, 10/15/17) Reported Meds & Prescriptions Reported Meds & Active Scripts Active Keflex (Cephalexin) 500 Mg Cap 500 Mg PO Q6H 7 Days Reported Kelp (Iodine) 150 Mcg Tablet PO EVERY OTHER DAY Turmeric (Turmeric (Curcuma Longa)) Unknown Strength Cap 1 Cap PO DAILY Zinc Sulfate 220 Mg Cap 220 Mg PO DAILY Magnesium Gluconate 500 Mg Tab 500 Mg PO DAILY Plavix (Clopidogrel Bisulfate) 75 Mg Tab 75 Mg PO DAILY Aspirin 81 Mg Chew 81 Mg CHEW DAILY Lisinopril 20 Mg Tab 20 Mg PO BID Hydrochlorothiazide 25 Mg Tab 25 Mg PO DAILY Temazepam 15 Mg Cap 15 Mg PO HS PRN Red Yeast Rice (Red Yeast Rice Extract) 600 Mg Cap DAILY Gemfibrozil 600 Mg Tab 600 Mg PO DAILY Take 30 minutes prior to breakfast and dinner. Betamethasone Valerate Topical 0.1% Cream 1 Applic TOPICAL BID Vitamin D3 (Cholecalciferol) 2,000 Unit Cap 2,000 Units PO DAILY Cayenne (Capsicum (Cayenne)) 450 Mg Cap Apple Cider Vinegar 500 Mg Tab DAILY Review of Systems Except as stated in HPI: all other systems reviewed are Neg General / Constitutional: No: Fever Eyes: No: Visual changes HENT: No: Headaches Cardiovascular: No: Chest Pain or Discomfort Respiratory: No: Shortness of Breath Gastrointestinal: No: Abdominal Pain Genitourinary: No: Dysuria Physical Exam Narrative GENERAL: Alert and well-appearing 10-year-old male SKIN: Warm and dry. Flap laceration to the left hand HEAD: Normocephalic. Atraumatic EYES: Pupils equal, round, reactive to light. EOMs intact. No injection or drainage. NECK: Supple, trachea midline. No cervical midline tenderness. Freely moves the neck. CARDIOVASCULAR: Regular rate and rhythm without murmurs, gallops, or rubs. No chest wall tenderness. RESPIRATORY: Breath sounds equal bilaterally. No accessory muscle use. GASTROINTESTINAL: Abdomen soft, non-tender, nondistended. MUSCULOSKELETAL: No cyanosis, or edema. Left hand 5 cm flap laceration to the palm. No tendon or vascular injury identified. He can freely move the wrist and all fingers. Normal sensation. Brisk cap refill. BACK: Nontender without obvious deformity. No CVA tenderness. Data Data Last Documented VS Orders Orders Hand, Limited (2vws) (10/15/17 ) Tetanus/Diphtheria Tox Adult (Tetanus/Di (10/15/17 17:45) Lidocaine 1% Inj (50 Ml) (Xylocaine 1% I (10/15/17 17:45) Lidocaine 1% Inj (Xylocaine 1% Inj) (10/15/17 18:02) Ed Discharge Order (10/15/17 19:45) MDM Medical Decision Making Medical Screen Exam Complete: Yes Emergency Medical Condition: Yes Differential Diagnosis Laceration, tendon injury, hand fracture Narrative Course This is an 82-year-old male here with a laceration to the left hand caused by a fall onto an outstretched hand. The extremity is neurovascularly intact. No tendon or vascular injury identified. Patient is anticoagulated on Plavix. He is adamant he did not hit his head. He refuses CT scan. Risk of missed intracranial bleeding to permanent disability or discussed. He verbalizes understanding and still refuses. He has a normal neuro exam and no evidence of trauma to the head. X-ray of the hand is negative for fracture or foreign body. Laceration repair performed. Patient tolerated procedure well. Procedures Procedure Narrative LACERATION LOCATION: Left hand LENGTH: 5 cm flap lack NUMBER OF STITCHES/ERIC: 11 REPAIR: The area of the laceration was prepped with Betadine and sterilely draped. The laceration was infiltrated with 1% lidocaine. The wound was copiously irrigated and explored without evidence of foreign body, tendon injury or neurovascular injury. The wound was closed using 3-0 Ethilon. This was a single layer repair. A sterile dressing was applied. The patient was advised to keep the dressing clean and dry. Patient tolerated the procedure well. Diagnosis Primary Impression: Hand laceration Qualified Codes: S61.412A - Laceration without foreign body of left hand, initial encounter Additional Impression: Distal phalanx or phalanges, closed fracture Qualified Codes: S62.665A - Nondisplaced fracture of distal phalanx of left ring finger, initial encounter for closed fracture Referrals: Shakira Akins MD Hand Surgeon Primary Care Physician Additional Instructions: Cleansed the area daily with soap and water. Apply clean dry dressing. Take the antibiotics as directed. Sutures need to be removed in 10 days. Return to the emergency department if you have new or worsening symptoms. Scripts Cephalexin (Keflex) 500 Mg Cap 500 MG PO Q6H for Infection for 7 Days, #28 CAP 0 Refills Prov: Kaitlin Ansari 10/15/17 Disposition: 01 DISCHARGE HOME Condition: Stable Kaitlin Ansari Oct 15, 2017 19:26
== END 2017-10-15 19:50 | disposition home or self-care (01) ==
LOC: PHED 15:56 → PHEFT 19:50
DX: S61.412A Laceration without foreign body of left hand, initial encounter (principal); S62.665A Nondisplaced fracture of distal phalanx of left ring finger, initial encounter for closed fracture; W01.0XXA Fall on same level from slipping, tripping and stumbling without subsequent striking against object, initial encounter; E11.9 Type 2 diabetes mellitus without complications; I10 Essential (primary) hypertension; M19.90 Unspecified osteoarthritis, unspecified site; K57.90 Diverticulosis of intestine, part unspecified, without perforation or abscess without bleeding; I77.819 Aortic ectasia, unspecified site; I70.90 Unspecified atherosclerosis; Z79.02 Long term (current) use of antithrombotics/antiplatelets; Z23 Encounter for immunization
CPT/HCPCS: 12002; 73120; 90471; 90714